=== PATIENT | female | born 1990 | race Caucasian/White ===

== ENCOUNTER 2023-03-30 11:55 | Emergency (ER) | payer SELFPAY ==
[2023-03-30 12:05] VITALS: TEMP 97.3
[2023-03-30 12:06] VITALS: RESP 18
--- NOTE | 2023-03-30 12:37 | ERPHSYRPT ---
- History of Present Illness Time Seen by Provider: 03/30/23 12:36 Source: patient Exam Limitations: no limitations Patient Subjective Stated Complaint: pt here for cough, chills, and fever for a couple days now. family has flu Triage Nursing Assessment: pt alert, walked in, resp easy, occ cough, no edema noted, moves all ext well Physician History: This is a 32-year-old white female patient who presents with 3-day history of cough fever and nasal congestion. Her symptoms have been intermittent. Patient states [id number] products have been working fine for her. Patient denies chest pain. She denies significant shortness of breath. She denies abdominal pain. She denies nausea vomiting and diarrhea. Patient states that the flu is "going through her household". Patient's employer made her come to get viral swabs. She works with patients at a facility. Timing/Duration: day(s) (Few days) Cough Quality/Degree: mild, dry cough Possible Cause: occasional episodes Modifying Factors: Improves With: coughing Associated Symptoms: fever, cough, nasal congestion Allergies/Adverse Reactions: codeine Allergy (Verified 03/30/23 12:04) Hx Influenza Vaccination/Date Given: No Hx Pneumococcal Vaccination/Date Given: No Immunizations Up to Date: Yes Travel Risk - International Travel Have you traveled outside of the country in past 3 weeks: No - Coronavirus Screening Are you exhibiting any of the following symptoms?: Yes Symptoms: Fever, Cough: New Onset Close contact with a COVID-19 positive Pt in past 14-21 Days: No - Vaccine Status Have you recieved a Covid-19 vaccination: Yes [employer] Game [employer]: [employer] - Review of Systems Constitutional: Fever Eyes: No Symptoms Ears, Nose, & Throat: Nose Congestion Respiratory: Cough, No Dyspnea Cardiac: No Symptoms, No Chest Pain Abdominal/Gastrointestinal: No Symptoms Genitourinary Symptoms: No Symptoms Musculoskeletal: No Symptoms Skin: No Symptoms Neurological: No Symptoms Psychological: No Symptoms Endocrine: No Symptoms Hematologic/Lymphatic: No Symptoms Immunological/Allergic: No Symptoms All Other Systems: Reviewed and Negative - Past Medical History Pertinent Past Medical History: No - Past Surgical History Past Surgical History: Yes Gastrointestinal: Cholecystectomy Female Surgical History: Tubal Ligation - Social History Smoking Status: Current every day smoker Exposure to second hand smoke: Yes Drug Use: none Patient Lives Alone: Yes - Female History Hx Last Menstrual Period: mar 12 Hx Now: No - Nursing Vital Signs Nursing Vital Signs: Initial Vital Signs Temperature 97.3 F 03/30/23 12:04 Pulse Rate 94 H 03/30/23 12:04 Respiratory Rate 16 03/30/23 12:04 Blood Pressure 138/100 03/30/23 12:04 O2 Sat by Pulse Oximetry 98 03/30/23 12:04 Pain Scale Pain Intensity 2 - Physical Exam General Appearance: no apparent distress, alert Eye Exam: PERRL/EOMI, eyes nml inspection Ears, Nose, Throat Exam: normal ENT inspection, moist mucous membranes Neck Exam: normal inspection, non-tender, supple, full range of motion Respiratory Exam: normal breath sounds, lungs clear, airway intact, No chest tenderness, No respiratory distress Cardiovascular Exam: regular rate/rhythm, normal heart sounds, normal peripheral pulses Gastrointestinal/Abdomen Exam: soft, normal bowel sounds, No tenderness Pelvic Exam: not done Rectal Exam: not done Back Exam: normal inspection, normal range of motion, No CVA tenderness, No vertebral tenderness Extremity Exam: normal inspection, normal range of motion, pelvis stable Neurologic Exam: alert, oriented x 3, cooperative, hypoid gear generator II-XII nml as tested, normal mood/affect, nml cerebellar function, nml station & gait, sensation nml Skin Exam: normal color, warm, dry Lymphatic Exam: No adenopathy SpO2 Interpretation: normal SpO2: 98 O2 Delivery: Room Air - Course Nursing assessment & vital signs reviewed: Yes Lab/Rad Data: Laboratory Results 03/30/23 Range/Units 12:30 Influenza Type A Ag NEGATIVE (NEGATIVE) Influenza Type B Ag NEGATIVE (NEGATIVE) RSV (PCR) NEGATIVE (NEGATIVE) SARS-CoV-2 (PCR) NEGATIVE (NEGATIVE) - Progress Progress: unchanged Air Movement: good Progress Note: 03/30/23 13:16 This patient's medical issue low complexity. Level complex in the workup performed is based on review the patient's past medical history, review the patient's medication list, review the patient's drug allergy list, history of present illness and physical findings on examination. The workup in this patient includes viral swabs. No radiographic studies are necessary in this patient workup. Blood Culture(s) Obtained: No Antibiotics given: No Counseled pt/family regarding: lab results, diagnosis, need for follow-up Medical Desision Making - Diagnostic Testing Diagnostic test were ordered, analyzed, and reviewed by me: Yes - Risk of complications The pt has a mod risk of morbidity or mortality based on: Need for prescription drug management - Departure Departure Disposition: Home Clinical Impression: Bronchitis Condition: Stable Critical Care Time: No Referrals: DOCTOR,NO FAMILY [Primary Care Provider] - Follow up/PCP as directed Additional Instructions: Take your medication including the new prescription for steroids as prescribed. You may return to work without restrictions. Prescriptions: Prednisone 10 mg [Deltasone 10 mg] 10 mg PO TID #12 tablet
[2023-03-30 13:11] VITALS: BP 140/90; PULSE 78
[2023-03-30 13:12] LABS: INFLUENZA A NEGATIVE (NEGATIVE); INFLUENZA B NEGATIVE (NEGATIVE); RESPIRATORY SYNCTIAL VIRUS NEGATIVE (NEGATIVE); SARS-CoV-2 Xpert Express NEGATIVE (NEGATIVE)
[2023-03-30 13:17] VITALS: O2SAT 98
== END 2023-03-30 13:40 | disposition home or self-care (01) ==
LOC: ED 11:55
DX: J40 Bronchitis, not specified as acute or chronic (principal); R50.9 Fever, unspecified; R05.1 Acute cough; Z79.52 Long term (current) use of systemic steroids; Z72.0 Tobacco use
CPT/HCPCS: 0241U; 99282